=== PATIENT | female | born 1990 | race Caucasian/White ===

== ENCOUNTER → 2019-01-19 | Outpatient (CLI) | payer OTHER ==
[2019-01-25 14:51] LABS: HPV HYBRID CAPTURE II Negative (Negative)
== END ==
LOC: M SMT 09:20
PROVIDERS: ATTEND Advanced Practice Midwife
DX: Z32.01 Encounter for pregnancy test, result positive (principal); Z3A.00 Weeks of gestation of pregnancy not specified
CPT/HCPCS: 36415; 84702; 87624; G0123

== ENCOUNTER → 2019-04-03 | Outpatient (REF) | payer OTHER | LOC: M LAB REF 17:30 | PROVIDERS: ATTEND Advanced Practice Midwife | DX: Z34.02 Encounter for supervision of normal first pregnancy, second trimester (principal); Z3A.00 Weeks of gestation of pregnancy not specified ==

== ENCOUNTER → 2019-04-03 | Outpatient (CLI) | payer OTHER ==
[2019-04-03 14:22] LABS: FREE T4 1.05 NG/DL (0.76-1.46); THYROID STIMULATING HORMONE 0.565 uIU/ML (0.358-3.740)
== END ==
LOC: M LAB 12:37
PROVIDERS: ATTEND Advanced Practice Midwife
DX: Z34.02 Encounter for supervision of normal first pregnancy, second trimester (principal); Z3A.00 Weeks of gestation of pregnancy not specified

== ENCOUNTER → 2019-04-27 | Outpatient (CLI) | payer OTHER ==
--- NOTE | 2019-04-27 09:18 | REP ---
Clinical: Anatomical evaluation. Comparison: None . Findings: Examination demonstrates a single live intrauterine in breech presentation. motion is identified by technologist. Placenta is noted fundal and grade zero without evidence for placenta previa or abruption. Amniotic fluid volume is normal. Cervix measures 4.0 cm in length and appears closed. No evidence for nuchal cord. Gestational age by LMP 18 weeks 5 days with CHEIKH 09/23/2019 . Gestational age by current measurements 18 weeks 6 days with CHEIKH 09/22/2019 . FHR equals 139 beats per minute. BPD 4.2 cm 18 weeks 6 days HC 15.8 cm 18 weeks 5 days AC 13.1 cm 18 weeks 4 days FL 2.9 cm 19 weeks 0 days HL 2.9 cm 19 weeks 3 days HC/AC ratio 1.21 Estimated weight 257 grams ( 49th percentile). Anatomical assessment demonstrates normal structures including cranium, choroid plexus, cavum, cerebellum/posterior fossa, lungs, ventricular outflow tracts, diaphragm, stomach, three-vessel cord, kidneys/bladder, and extremities. Limited evaluation of the facial features, heart, three-vessel cord view and spine. Impression: Single live intrauterine in breech presentation demonstrating appropriate interval growth. Anatomical limitations as described above warrant reevaluation and follow-up. Electronically Signed by Roni Gutierres MD 04/27/2019 09:09 A
== END ==
LOC: M RAD 08:15
PROVIDERS: ATTEND Advanced Practice Midwife
DX: O32.1XX0 Maternal care for breech presentation, not applicable or unspecified (principal); Z36.89 Encounter for other specified antenatal screening; Z3A.18 18 weeks gestation of pregnancy

== ENCOUNTER → 2019-05-21 | Outpatient (CLI) | payer OTHER ==
--- NOTE | 2019-05-22 04:14 | REP ---
Clinical: Anatomical evaluation. Comparison: 04/27/2019. Findings: Examination demonstrates a single live intrauterine in variable presentation. motion is identified by technologist. Placenta is noted anterior and grade zero without evidence for placenta previa or abruption. Amniotic fluid volume is normal. Cervix measures 3.9 cm in length and appears closed. No evidence for nuchal cord. Gestational age by LMP 22 weeks 1 day with CHEIKH 09/23/2019 . Gestational age by current measurements 22 weeks 1 day with CHEIKH 09/23/2019 . FHR equals 157 beats per minute. Anatomical assessment demonstrates normal structures including facial features, cardiac ventricular outflow tracts, and spine. Impression: single live intrauterine in variable presentation. In conjunction with prior examination anatomical assessment is complete and normal.
== END ==
LOC: M WHC 10:54
PROVIDERS: ATTEND Advanced Practice Midwife
DX: O99.282 Endocrine, nutritional and metabolic diseases complicating pregnancy, second trimester (principal); Z3A.22 22 weeks gestation of pregnancy

== ENCOUNTER → 2019-06-29 | Outpatient (CLI) | payer OTHER ==
[2019-06-29 13:36] LABS: HEMOGLOBIN 11.7 g/dl (12.0-15.5); MEAN CORPUSCULAR HEMOGLOBIN 32.9 pg (27.0-33.0); MEAN CORPUSCULAR HGB CONC 33.4 g/dl (32.0-36.5); MEAN CORPUSCULAR VOLUME 98.3 fl (80.0-96.0); PLATELET COUNT, AUTOMATED 220 10^3/uL (150-450); RED BLOOD COUNT 3.56 10^6/uL (4.00-5.40); WHITE BLOOD COUNT 8.9 10^3/uL (4.0-10.0)
[2019-06-29 13:53] LABS: FREE T4 0.86 NG/DL (0.76-1.46); THYROID STIMULATING HORMONE 0.455 uIU/ML (0.358-3.740)
== END ==
LOC: M SMT 09:33
PROVIDERS: ATTEND Advanced Practice Midwife
DX: O99.282 Endocrine, nutritional and metabolic diseases complicating pregnancy, second trimester (principal)

== ENCOUNTER → 2019-07-13 | Outpatient (CLI) | payer OTHER | LOC: M LAB 08:08 | PROVIDERS: ATTEND Advanced Practice Midwife | DX: O99.282 Endocrine, nutritional and metabolic diseases complicating pregnancy, second trimester (principal); Z3A.00 Weeks of gestation of pregnancy not specified ==

== ENCOUNTER 2019-08-19 02:19 | Inpatient (IN) | payer OTHER ==
[2019-08-19] VITALS (10 sets, daily range): BP systolic 106–140; BP diastolic 56–76
[~2019-08-19] VITALS: Ht 149.9 cm; Wt 85.0 kg
[2019-08-19] MEDS ORDERED: PENICILLIN G POTASSIUM IV 5 MU in D5W MINI-BAG PLUS 100 ML IV ONE (03:15)
[2019-08-19] MEDS ORDERED: CALCIUM CARBONATE 500 MG CHEW U/D PO ONE (03:15)
[2019-08-19] MEDS ORDERED: LEVO50TA5 PO (03:32)
[2019-08-19] MEDS ORDERED: RANI1TAB38 PO (03:35)
[2019-08-19] MEDS ORDERED: PRENTAB9 PO (03:35)
[2019-08-19 03:50] LABS: HEMATOCRIT 34.1 % (36.0-47.0); HEMOGLOBIN 11.3 g/dl (12.0-15.5); MEAN CORPUSCULAR HEMOGLOBIN 31.8 pg (27.0-33.0); MEAN CORPUSCULAR HGB CONC 33.1 g/dl (32.0-36.5); MEAN CORPUSCULAR VOLUME 96.1 fl (80.0-96.0); PLATELET COUNT, AUTOMATED 197 10^3/uL (150-450); RED BLOOD COUNT 3.55 10^6/uL (4.00-5.40); WHITE BLOOD COUNT 12.5 10^3/uL (4.0-10.0)
[2019-08-19] MEDS ORDERED: LR 1,000 ML IV SCH ×2 (05:31→10:30)
[2019-08-19] MEDS ORDERED: LACTATED RINGER'S 1000 ML IV STA (05:31)
[2019-08-19] MEDS ORDERED: miSOPROStol 50 MCG 1/2 TAB (S0191) SL ONE (05:45)
[2019-08-19] MEDS ORDERED: BETAMETHASONE SOLUSPAN 6MG/ML INJ 5ML (J0702) IM SCH (06:00)
[2019-08-19] MEDS ORDERED: PENICILLIN G POTASSIUM IV 2.5 MU in IV 1 EA IV SCH (08:00)
[2019-08-19] MEDS ORDERED: BICITRA 30ML SOLN UDC As Ordered ONE (09:11)
[2019-08-19] MEDS ORDERED: ceFAZolin 2 GM/D5W 50 ML IV BAG (J0690 PER 500MG) As Ordered ONE (09:12)
[2019-08-19] MEDS ORDERED: AZITHROMYCIN INJ 500MG VIAL (J0456) As Ordered ONE (09:12)
[2019-08-19] MEDS ORDERED: ceFAZolin SOD 2 GM in IV 1 EA IV ONE (09:15)
[2019-08-19] MEDS ORDERED: BICITRA 30ML SOLN UDC PO ONE (09:15)
[2019-08-19] MEDS ORDERED: MORPHINE PRES-FREE INJ 10 MG/10 ML VIAL (J2274) As Ordered ONE (09:15)
[2019-08-19] MEDS ORDERED: NALBUPHINE HCL 10 MG/ML AMP (J2300) IV PRN ×2 (09:21→10:30)
[2019-08-19] MEDS ORDERED: ONDANSETRON 4MG/2ML VIAL (J2405) IV PRN ×2 (09:21→10:30)
[2019-08-19] MEDS ORDERED: METOCLOPRAMIDE INJ 10MG/2ML VIAL (J2765) IV PRN ×2 (09:21→10:30)
[2019-08-19] MEDS ORDERED: NALOXONE INJ 0.4 MG/1 ML VIAL (J2310) IV PRN ×2 (09:21)
[2019-08-19] MEDS ORDERED: diphenhydrAMINE INJ 50MG/ML VIAL (J1200) IV PRN (09:21)
[2019-08-19] MEDS ORDERED: OXYTOCIN INJ 10 UNITS/ML VIAL (J2590) As Ordered ONE (09:31)
[2019-08-19] MEDS ORDERED: ONDANSETRON 4MG/2ML VIAL (J2405) As Ordered ONE (09:33)
[2019-08-19] MEDS ORDERED: PHENYLephrine HCL 500 MCG/5 ML (100MCG/ML) SYRINGE (J2370) As Ordered ONE (09:34)
[2019-08-19 09:52] LABS: CORD GAS ABE A -2.9; CORD GAS HCO3 A 24.1 MEQ/L; CORD GAS O2 SAT A 17.5 %; CORD GAS PCO2 A 49.5 mmHg; CORD GAS PH A 7.305 UNITS; CORD GAS PO2 A 11.9 mmHg; CORD GAS SBC A 19.9 MEQ/L; CORD GAS TCO2 A 25.6 MEQ/L
[2019-08-19 09:54] LABS: CORD GAS ABE V -3.6; CORD GAS HCO3 V 23.2 MEQ/L; CORD GAS PCO2 V 47.6 mmHg; CORD GAS PH V 7.305 UNITS; CORD GAS PO2 V 24.1 mmHg; CORD GAS SBC V 20.3 MEQ/L; CORD GAS TCO2 V 24.6 MEQ/L
[2019-08-19] MEDS ORDERED: AZITHROMYCIN INJ 500 MG, VIAL MATE ADAPTER 1 EACH in D5W 250 ML IV ONE (10:00)
[2019-08-19] MEDS ORDERED: MEPERIDINE INJ 25 MG/ML VIAL (J2175) As Ordered ONE (10:29)
[2019-08-19] MEDS ORDERED: PERCOCET 5MG/325MG TAB PO PRN (10:30)
[2019-08-19] MEDS ORDERED: MEPERIDINE INJ 25 MG/ML VIAL (J2175) IV PRN (10:30)
[2019-08-19] MEDS ORDERED: fentaNYL 100 MCG/2 ML INJECTION (J3010) IV PRN (10:30)
[2019-08-19] MEDS ORDERED: ACETAMINOPHEN 500 MG TAB PO PRN (10:30)
[2019-08-19] MEDS ORDERED: ONDANSETRON 4 MG TAB (S0181) PO PRN (10:30)
[2019-08-19] MEDS ORDERED: KETOROLAC 30 MG/ML VIAL (J1885) IV PRN (10:30)
[2019-08-19] MEDS ORDERED: PROMETHAZINE 25 MG TAB PO PRN (10:30)
[2019-08-19] MEDS ORDERED: OXYTOCIN 30 UNITS IN 0.9% NaCl 500ML IV BAG (J2590) As Ordered ONE (10:36)
[2019-08-19] MEDS ORDERED: OXYTOCIN DRIP 30 UNITS in IV 1 EA IV SCH (11:00)
[2019-08-19] MEDS ORDERED: MEASLES,MUMPS,RUBELLA VACCINE INJ (MMR-II) (90707) SC SCH (11:00)
[2019-08-19] MEDS ORDERED: RHOGAM 300 MCG (1500 IU) INJ (J2790) IM SCH (11:00)
[2019-08-19] MEDS: KETOROLAC 30 MG/ML VIAL (J1885) IV SCH ×2 (12:07→18:24)
[2019-08-19] MEDS: LR 1,000 ML IV SCH ×2 (15:51→19:00)
[2019-08-19] MEDS: DOCUSATE SODIUM 100 MG CAP PO SCH (22:19)
[2019-08-19] MEDS: PERCOCET 5MG/325MG TAB PO PRN (22:20)
[2019-08-20 02:00] VITALS: BP 105/61
[2019-08-20] MEDS: LR 1,000 ML IV SCH ×2 (03:00→11:00)
[2019-08-20] MEDS: KETOROLAC 30 MG/ML VIAL (J1885) IV SCH (03:27)
[2019-08-20 06:00] VITALS: BP 110/55
[2019-08-20] MEDS ORDERED: IBUP80TA PO (07:03)
[2019-08-20] MEDS ORDERED: PERCOCET PO (07:03)
[2019-08-20] MEDS: IBUPROFEN 800 MG TAB PO SCH ×2 (08:09→15:57)
[2019-08-20] MEDS: PRENATAL VITAMINS CHEWABLE TABLET PO SCH (08:09)
[2019-08-20] MEDS: DOCUSATE SODIUM 100 MG CAP PO SCH ×2 (08:09→21:50)
[2019-08-20 08:31] LABS: HEMATOCRIT 28.2 % (36.0-47.0); MEAN CORPUSCULAR HEMOGLOBIN 32.4 pg (27.0-33.0); MEAN CORPUSCULAR VOLUME 98.3 fl (80.0-96.0); PLATELET COUNT, AUTOMATED 168 10^3/uL (150-450); RED BLOOD COUNT 2.87 10^6/uL (4.00-5.40); WHITE BLOOD COUNT 14.6 10^3/uL (4.0-10.0)
[2019-08-20 08:51] LABS: HEMOGLOBIN 9.3 g/dl (12.0-15.5)
[2019-08-20 10:00] VITALS: BP 115/61
[2019-08-20 14:00] VITALS: BP 105/56
[2019-08-20 18:00] VITALS: BP 111/57
[2019-08-20] MEDS: PERCOCET 5MG/325MG TAB PO PRN (19:52)
[2019-08-20 22:00] VITALS: BP 115/69
[2019-08-21] MEDS: IBUPROFEN 800 MG TAB PO SCH ×3 (00:02→16:16)
[2019-08-21 02:00] VITALS: BP 112/56
[2019-08-21 06:00] VITALS: BP 127/75
[2019-08-21] MEDS: PERCOCET 5MG/325MG TAB PO PRN ×2 (06:39→17:31)
[2019-08-21] MEDS: DOCUSATE SODIUM 100 MG CAP PO SCH ×2 (07:38→21:18)
[2019-08-21] MEDS: PRENATAL VITAMINS CHEWABLE TABLET PO SCH (07:39)
[2019-08-21] MEDS ORDERED: MOM 30ML SUSPENSION UDC PO ONE (12:15)
[2019-08-21 18:00] VITALS: BP 123/69
[2019-08-22] MEDS: PERCOCET 5MG/325MG TAB PO PRN (05:56)
[2019-08-22 06:00] VITALS: BP 121/76
[2019-08-22] MEDS: IBUPROFEN 800 MG TAB PO SCH ×2 (08:48)
[2019-08-22] MEDS: DOCUSATE SODIUM 100 MG CAP PO SCH (08:48)
[2019-08-22] MEDS: PRENATAL VITAMINS CHEWABLE TABLET PO SCH (08:48)
--- NOTE | 2019-08-22 10:17 | DSES ---
DATE OF ADMISSION: 08/19/2019 DATE OF DISCHARGE: 08/22/2019 DISCHARGE DIAGNOSIS: premature rupture of membranes. CONDITION ON DISCHARGE: Stable. PROCEDURES PERFORMED IN THE HOSPITAL: 1. Spinal anesthesia. 2. Primary lower transverse section. HISTORY AND HOSPITAL COURSE: This patient is a 28-year-old, 1, who presented at 35 weeks estimated gestational age with premature rupture of membranes. She had a large gush of fluid and was confirmed ruptured. She underwent a primary section for non-reassuring heart tracing productive of a live born female infant, Apgars 9 and 10. Weight was 4 pounds and 9 ounces. Her estimated blood loss was 500 mL. She did well postoperatively. By postoperative day #3, she had met all discharge criteria and so was discharged home in stable condition. PHYSICAL EXAM ON DATE OF DISCHARGE: Her vital signs stable. She is afebrile. General Appearance: Well appearing in no acute distress. Abdomen was soft, appropriately tender. Incision was dressed. Extremities: Negative for calf tenderness. DISCHARGE INSTRUCTIONS: 1. She was instructed to follow up in 2 weeks for incision check. 2. To report severe pain, heavy vaginal bleeding or fever. DISCHARGE MEDICATIONS: Ibuprofen and Percocet. edited: 08/23/2019 [id number] marleny [email or web address]
== END 2019-08-22 13:00 | disposition home or self-care (01) | DRG 773 ==
LOC: M LDO 02:19 → M LDI 03:31 → M OBS 11:55
PROVIDERS: ADMIT Obstetrics & Gynecology; ATTEND Obstetrics & Gynecology
PROC: 10D00Z1 Extraction of Products of Conception, Low, Open Approach (ICD-10-PCS; principal; 2019-08-19 09:20)
DX: O42.013 Preterm premature rupture of membranes, onset of labor within 24 hours of rupture, third trimester (principal); Z3A.35 35 weeks gestation of pregnancy; O76 Abnormality in fetal heart rate and rhythm complicating labor and delivery; Z37.0 Single live birth

== ENCOUNTER → 2019-10-22 | Outpatient (CLI) | payer OTHER ==
[~2019-10-22] MED LIST: IBUP80TA PO; LEVO50TA5 PO; PERCOCET PO; PRENTAB9 PO; RANI1TAB38 PO
== END ==
LOC: M PLALAB 08:41
PROVIDERS: ATTEND Obstetrics & Gynecology
DX: E03.9 Hypothyroidism, unspecified (principal)

== ENCOUNTER → 2020-08-15 | Outpatient (REF) | payer OTHER | LOC: M SFHCWAGY 13:27 | PROVIDERS: ATTEND Obstetrics & Gynecology | DX: Z12.4 Encounter for screening for malignant neoplasm of cervix (principal) | CPT/HCPCS: 87624; G0123 ==